=== PATIENT | female | born 1980 | race Caucasian/White ===

== ENCOUNTER 2016-09-12 15:30 | Emergency (ER) | payer BC ==
[2016-09-12] MEDS ORDERED: LORazepam 2 MG/ML MDV IVPUSH ONE (15:37)
[2016-09-12] MEDS ORDERED: Ketorolac 30 MG/ML SDV IVPUSH ONE (15:37)
[2016-09-12] MEDS ORDERED: Sodium Chloride 0.9% 1,000 ML IV ONE (15:37)
[2016-09-12] MEDS ORDERED: Ondansetron 4 MG/2 ML SDV IVPUSH ONE (15:37)
--- NOTE | 2016-09-12 15:43 | EDM.PDOC ---
ED HPI GENERAL MEDICAL PROBLEM - General Chief Complaint: Neuro Symptoms/Deficits Stated Complaint: DIZZY Time Seen by Provider: 09/12/16 15:41 Source of Information: Reports: Patient History Limitations: Reports: No Limitations - History of Present Illness INITIAL COMMENTS - FREE TEXT/NARRATIVE: History of present illness: [6-year-old female presenting with complaints of headache pain and dizziness. Patient indicates she had this headache starting on Friday where she saw her PCP who instructed her to come here for further evaluation do to some visual changes as well as debilitating levels of pain patient went home thinking that it would resolve itself. Patient indicates it was slightly better but today she woke up and while the visual changes are not as bad the pain is significantly worse. Patient is presenting with A. mild amount of distress and clear discomfort.] Review of systems: As per history of present illness and below otherwise all systems reviewed and negative. Past medical history: As per history of present illness and as reviewed below otherwise noncontributory. Surgical history: As per history of present illness and as reviewed below otherwise noncontributory. Social history: No reported history of drug or alcohol abuse. Family history: As per history of present illness and as reviewed below otherwise noncontributory. Physical exam: HEENT: Atraumatic, normocephalic, pupils reactive, negative for conjunctival pallor or scleral icterus, mucous membranes moist, throat clear, neck supple, nontender, trachea midline. Point tenderness noted in the frontal sinuses, maxillary sinuses as well as temporal sinuses Lungs: Clear to auscultation, breath sounds equal bilaterally, chest nontender. Heart: S1S2, regular, negative for clicks, rubs, or JVD. Abdomen: Soft, nondistended, nontender. Negative for masses or hepatosplenomegaly. Negative for costovertebral tenderness. Pelvis: Stable nontender. Genitourinary: Deferred. Rectal: Deferred. Extremities: Atraumatic, negative for cords or calf pain. Neurovascular unremarkable. Neuro: Awake, alert, oriented. Cranial nerves II through XII unremarkable. Cerebellum unremarkable. Motor and sensory unremarkable throughout. Exam nonfocal. Diagnostics: [CBC CMP, CT of head] Therapeutics: [IV fluid, Ativan, Toradol] Impression: [Sinusitis the headache] Plan: [antibiotics] Definitive disposition and diagnosis as appropriate pending reevaluation and review of above. head Pain Score (Numeric/FACES): 8 - Related Data Allergies Allergy/AdvReac Type Severity Reaction Status Date / Time ibuprofen Allergy Nausea and Verified 09/12/16 15:38 Vomiting Home Meds: Home Meds lamoTRIgine [Lamotrigine] 200 mg PO DAILY 11/29/13 [History] ARIPiprazole [Abilify] 10 mg PO DAILY 09/12/16 [History] Desvenlafaxine [Desvenlafaxine ER] 50 mg PO DAILY 09/12/16 [History] Gabapentin [Neurontin] 300 mg PO BID 09/12/16 [History] Temazepam 15 - 30 mg PO BEDTIME PRN 09/12/16 [History] Past Medical History - Past Health History Medical/Surgical History: Denies Medical/Surgical History Other OB/BYN History: Hysterectomy (2011) Psychiatric History: Reports: Bipolar - Past Surgical History GI Surgical History: Reports: Cholecystectomy Female Surgical History: Reports: Hysterectomy Social & Family History - Tobacco Use Smoking Status *Q: Former Smoker Years of Tobacco use: 7 Used Tobacco, but Quit: Yes Month Tobacco Last Used: 9 months - Caffeine Use Caffeine Use: Reports: Coffee - Alcohol Use Days Per Week of Alcohol Use: 2 - Recreational Drug Use Recreational Drug Use: No Drug Use in Last 12 Months: No ED ROS GENERAL - Review of Systems Review Of Systems: See Below (See history of present illness) ED EXAM, GENERAL - Physical Exam Exam: See Below ([facility]) Course - Vital Signs Last Recorded V/S: Last Vital Signs Temp 36.2 C 09/12/16 15:35 Pulse 93 09/12/16 15:35 Resp 18 09/12/16 15:35 BP 161/105 H 09/12/16 15:35 Pulse Ox 94 L 09/12/16 15:35 - Orders/Labs/Meds Orders: Active Orders 24 hr Category Date Time Status EKG 12 Lead [EKG Documentation Completion] [RC] STAT Care 09/12/16 16:09 Active Labs: Laboratory Tests 09/12/16 09/12/16 Range/Units 15:58 15:58 WBC 13.49 H (4.0-11.0) K/uL RBC 4.68 (4.30-5.90) M/uL Hgb 13.9 (12.0-16.0) g/dL Hct 41.7 (36.0-46.0) % MCV 89.1 (80.0-98.0) fL MCH 29.7 (27.0-32.0) pg MCHC 33.3 (31.0-37.0) g/dL RDW Std Deviation 46.2 (28.0-62.0) fl RDW Coeff of Karla 14 (11.0-15.0) % Plt Count 360 (150-400) K/uL MPV 9.60 (7.40-12.00) fL Neut % (Auto) 69.2 (48.0-80.0) % Lymph % (Auto) 22.3 (16.0-40.0) % [place] % (Auto) 5.8 (0.0-15.0) % Eos % (Auto) 2.2 (0.0-7.0) % Baso % (Auto) 0.5 (0.0-1.5) % Neut # (Auto) 9.3 H (1.4-5.7) K/uL Lymph # (Auto) 3.0 H (0.6-2.4) K/uL [place] # (Auto) 0.8 (0.0-0.8) K/uL Eos # (Auto) 0.3 (0.0-0.7) K/uL Baso # (Auto) 0.1 (0.0-0.1) K/uL Nucleated RBC % 0.0 /100WBC Nucleated RBCs # 0 K/uL Sodium 142 (136-146) mmol/L Potassium 4.2 (3.5-5.1) mmol/L Chloride 110 (98-110) mmol/L Carbon Dioxide 20 L (21-31) mmol/L BUN 11 (6.0-23.0) mg/dL Creatinine 0.8 (0.6-1.5) mg/dL Est Cr Clr Drug Dosing 92.76 mL/min Estimated GFR (MDRD) > 60.0 ml/min Glucose 108 (60-110) mg/dL Calcium 9.1 (8.8-10.8) mg/dL Total Bilirubin 0.2 (0.1-1.5) mg/dL AST 15 (5-40) IU/L ALT 26 (8-54) IU/L Alkaline Phosphatase 113 (40-150) Total Protein 7.2 (6.0-8.0) g/dL Albumin 4.1 (3.5-5.0) g/dL Globulin 3.1 (2.0-3.5) g/dL Albumin/Globulin Ratio 1.3 (1.3-2.8) Meds: Medications Discontinued Medications Generic Name Dose Route Start Last Admin Trade Name Nilsa PRN Reason Stop Dose Admin Sodium Chloride 1,000 mls @ 999 mls/hr 09/12/16 15:37 09/12/16 15:59 Normal Saline IV 09/12/16 16:37 999 mls/hr STAT ONE Administration Ketorolac Tromethamine 30 mg 09/12/16 15:37 09/12/16 15:59 Toradol IVPUSH 09/12/16 15:38 30 mg ONETIME ONE Administration Lorazepam 1 mg 09/12/16 15:37 09/12/16 16:00 Ativan IVPUSH 09/12/16 15:38 1 mg ONETIME ONE Administration Ondansetron HCl 8 mg 09/12/16 15:37 09/12/16 15:59 Zofran IVPUSH 09/12/16 15:38 8 mg ONETIME ONE Administration Departure - Departure Time of Disposition: 17:03 Disposition: Home, Self-Care 01 Condition: good Clinical Impression: Sinusitis, Headache - Discharge Information Forms: ED Department Discharge Additional Instructions: The following information is given to patients seen in the emergency department who are being discharged to home. This information is to outline your options for follow-up care. We provide all patients seen in our emergency department with a follow-up referral. The need for follow-up, as well as the timing and circumstances, are variable depending upon the specifics of your emergency department visit. If you don't have a primary care physician on staff, we will provide you with a referral. We always advise you to contact your personal physician following an emergency department visit to inform them of the circumstance of the visit and for follow-up with them and/or the need for any referrals to a consulting specialist. The emergency department will also refer you to a specialist when appropriate. This referral assures that you have the opportunity for follow-up care with a specialist. All of these measure are taken in an effort to provide you with optimal care, which includes your follow-up. Under all circumstances we always encourage you to contact your private physician who remains a resource for coordinating your care. When calling for follow-up care, please make the office aware that this follow-up is from your recent emergency room visit. If for any reason you are refused follow-up, please contact the [facility] Emergency Department at and asked to speak to the emergency department charge nurse. Take antibiotics as directed Take 800 mg of ibuprofen [id number] every 8 hours for the next 3 days You would benefit from some Mucinex as well as some Claritin-D Followup with your PCP 1-2 days Return to ED as needed as discussed - My Orders Last 24 Hours: My Active Orders 09/12/16 16:09 EKG 12 Lead [EKG Documentation Completion] [RC] STAT - Assessment/Plan Last 24 Hours: My Active Orders 09/12/16 16:09 EKG 12 Lead [EKG Documentation Completion] [RC] STAT
[2016-09-12 16:24] LABS: CHLORIDE,CL 110 mmol/L (98-110); SODIUM,NA 142 mmol/L (136-146)
--- NOTE | 2016-09-12 16:27 | CT ---
EXAMINATION: Non contrast CT head. Coronal and sagittal reformats. HISTORY: Pain FINDINGS: No evidence of intra or extra axial hemorrhage, mass, midline shift, hydrocephalus or edema. No hy poattenuation changes in the major vascular territories to suggest acute infarct. No abnormal intracranial calcifications are detected. No evidence of substantial vascular calcifica tions. There is a small mucous retention cyst within the right maxillary sinus. Orbits and globes a re symmetric. Mastoid air cells are clear. Pituitary fossa appears unremarkable. The calvarium is intact. No evidence of skull fracture. IMPRESSION: No acute intracranial findings.
[2016-09-12 17:43] VITALS: BP 147/84
== END 2016-09-12 17:42 | disposition home or self-care (01) ==
LOC: MW.ED 15:30
DX: J32.9 Chronic sinusitis, unspecified (principal); Z79.899 Other long term (current) drug therapy; Z90.710 Acquired absence of both cervix and uterus; Z90.49 Acquired absence of other specified parts of digestive tract; Z87.891 Personal history of nicotine dependence; Z88.6 Allergy status to analgesic agent
CPT/HCPCS: 36415; 70450; 80053; 85025; 93005; 96361; 96374; 96375; 99284; J1885; J2060; J2405; J7040

== ENCOUNTER 2017-03-19 07:26 | Day surgery (SDC) | payer BC ==
[~2017-03-19 07:26] MED LIST: Bupivacaine 0.25% 10 ML SDV INJECT ONE; Bupivacaine 0.25% 10 ML SDV ONE; Dexamethasone 4 MG/ML 5 ML MDV ONE; Lactated Ringers 1,000 ML IV SCH; Midazolam 1 MG/ML 2 ML SDV ONE; Ondansetron 4 MG/2 ML SDV ONE; Propofol 200 MG/20 ML SDV ONE; ceFAZolin 2 GM in Premix Bag 1 BAG IV ONE; fentaNYL 100 MCG/2 ML SDV ONE
--- NOTE | 2017-03-19 08:08 | PCM.PREANE ---
Preanesthetic Assessment - Anesthesia/Transfusion/Family Hx Anesthesia History: Prior Anesthesia Without Reaction Other Type of Anesthesia Reaction Comment: DENIES ANY PROBLEMS WITH ANESTHESIA Family History of Anesthesia Reaction: No Transfusion History: No Prior Transfusion(s) Intubation History: Unknown - Review of Systems General: No Symptoms Pulmonary: No Symptoms Cardiovascular: No Symptoms Gastrointestinal: No Symptoms Neurological: No Symptoms Other: Reports: None - Physical Assessment Height: 1.68 m Weight: 143.789 kg ASA Class: 3 Mental Status: Alert & Oriented x3 Airway Class: Mallampati = 3 Dentition: Reports: Normal Dentition Thyro-Mental Finger Breadths: 2 Mouth Opening Finger Breadths: 2 ROM/Head Extension: Full Lungs: Normal Respiratory Effort, Wheezing Cardiovascular: Regular Rate, Regular Rhythm - Allergies Allergies/Adverse Reactions: Allergies Allergy/AdvReac Type Severity Reaction Status Date / Time ibuprofen Allergy Nausea and Verified 09/12/16 15:38 Vomiting - Blood Blood Available: No - Anesthesia Plan Pre-Op Medication Ordered: None - Acknowledgements Anesthesia Type Planned: General Anesthesia Pt an Appropriate Candidate for the Planned Anesthesia: Yes Alternatives and Risks of Anesthesia Discussed w Pt/Guardian: Yes Pt/Guardian Understands and Agrees with Anesthesia Plan: Yes PreAnesthesia Questionnaire - Past Health History Medical/Surgical History: Denies Medical/Surgical History HEENT History: Reports: Other (See Below) Other HEENT History: wears glasses/contacts Respiratory History: Reports: Asthma Gastrointestinal History: Reports: GERD (controlled with omeprazole) Genitourinary History: Reports: None Other OB/BYN History: Hysterectomy (2011) Musculoskeletal History: Reports: Back Pain, Chronic Neurological History: Reports: Concussion, Migraines Psychiatric History: Reports: Anxiety, Bipolar, Depression, Suicide Attempt Endocrine/Metabolic History: Reports: Obesity/BMI 30+ (morbid obesity BMI 51.2) - Past Surgical History Head Surgeries/Procedures: Reports: None GI Surgical History: Reports: Cholecystectomy Female Surgical History: Reports: Hysterectomy, Tubal Ligation - SUBSTANCE USE Smoking Status *Q: Former Smoker (quit a year ago) Tobacco Use Within Last Twelve Months: Cigarettes Days Per Week of Alcohol Use: 2 Recreational Drug Use History: No - HOME MEDS Home Medications: Home Meds lamoTRIgine [Lamotrigine] 200 mg PO DAILY 11/29/13 [History] ARIPiprazole [Abilify] 10 mg PO DAILY 09/12/16 [History] Desvenlafaxine [Desvenlafaxine ER] 100 mg PO DAILY 09/12/16 [History] Gabapentin [Neurontin] 600 mg PO BID 09/12/16 [History] Temazepam 15 - 30 mg PO BEDTIME PRN 09/12/16 [History] ALPRAZolam [Alprazolam] 0.5 mg PO ASDIRECTED PRN 03/14/17 [History] Albuterol Sulfate [Proair Hfa] 1 - 2 puff INH ASDIRECTED PRN 03/14/17 [History] Cholecalciferol (Vitamin D3) [Vitamin D3] 2,000 units PO BID 03/14/17 [History] Multivitamin [Multivitamins] 1 tab PO DAILY 03/14/17 [History] Omeprazole 40 mg PO DAILY 03/14/17 [History] Rizatriptan Benzoate [Rizatriptan] 10 mg SL ASDIRECTED PRN 03/14/17 [History] - CURRENT (IN HOUSE) MEDS Current Meds: Current Medications Lactated Ringer's (Ringers, Lactated) 1,000 mls @ 125 mls/hr IV ASDIRECTED MARYA Last Admin: 03/19/17 07:57 Dose: 125 mls/hr Discontinued Medications Bupivacaine HCl (Sensorcaine-Mpf 0.25%) 10 ml INJECT ONETIME ONE Stop: 03/18/17 16:57 Bupivacaine HCl (Sensorcaine-Mpf 0.25%) Confirm Administered Dose 10 ml .ROUTE .STK-MED ONE Stop: 03/19/17 07:27 Dexamethasone (Dexamethasone) Confirm Administered Dose 20 mg .ROUTE .STK-MED ONE Stop: 03/19/17 07:23 Fentanyl (Sublimaze) Confirm Administered Dose 100 mcg .ROUTE .STK-MED ONE Stop: 03/19/17 07:21 Cefazolin Sodium/Dextrose 2 gm (/ Premix) 50 mls @ 100 mls/hr IV ONETIME ONE Stop: 03/18/17 17:25 Lidocaine HCl (Xylocaine-Mpf 1%) Confirm Administered Dose 5 ml .ROUTE .STK-MED ONE Stop: 03/19/17 07:23 Midazolam HCl (Versed 1 Mg/Ml) Confirm Administered Dose 2 mg .ROUTE .STK-MED ONE Stop: 03/19/17 07:22 Ondansetron HCl (Zofran) Confirm Administered Dose 4 mg .ROUTE .STK-MED ONE Stop: 03/19/17 07:23 Propofol (Diprivan 20 Ml) Confirm Administered Dose 200 mg .ROUTE .STK-MED ONE Stop: 03/19/17 07:21
[2017-03-19] MEDS ORDERED: fentaNYL 100 MCG/2 ML SDV IVPUSH PRN (08:24)
[2017-03-19] MEDS ORDERED: Phenylephrine/Normal Saline 100 MCG/ML 10 ML Syringe ONE ×2 (08:52→09:11)
[2017-03-19] MEDS ORDERED: Albuterol/Ipratropium 3.0-0.5 MG/3 ML Neb Soln NEB ONE (09:47)
[2017-03-19 10:07] VITALS: BP 80/47
--- NOTE | 2017-03-19 17:44 | PCM.OPNOTE ---
- General Post-Op/Procedure Note Date of Surgery/Procedure: 03/19/17 Operative Procedure(s): right carpal tunnel release and extensor tenosynovectomy Pre Op Diagnosis: right carpal tunnel syndrome and wrist swelling Post-Op Diagnosis: Same Anesthesia Technique: Local, MAC Primary Surgeon: Joann Miranda Mathematical Engineer: Barbra Callahan Complications: None Condition: Good Free Text/Narrative:: Intake & Output 03/19/17 03/19/17 03/19/17 07:59 15:59 23:59 Intake Total 950 Balance 950
--- NOTE | 2017-03-20 13:27 | OR ---
SURGEON: ADRIAN PEMBERTON MD DATE OF PROCEDURE: 03/19/2017 PREOPERATIVE DIAGNOSIS: Right carpal tunnel syndrome and dorsal wrist swelling. POSTOPERATIVE DIAGNOSIS: Right carpal tunnel syndrome and dorsal wrist swelling. PROCEDURE: Right carpal tunnel release and extensor tendon tenosynovectomy. ANESTHESIA: General LMA. ENVIRONMENTAL DEPARTMENT MANAGER: JULIA Melendez INDICATIONS: Ms. Orozco is a 37-year-old female with right carpal tunnel syndrome. She also has a swelling of the dorsal aspect of the wrist that could be a ganglion versus tenosynovitis. Risks and benefits of exploration and debridement were discussed with her versus excision if there is a ganglion. She would like to proceed. Risks were including, but not limited to, bleeding, infection, damage to underlying or overlying structures, possible need for future interventions, possible scarring. PROCEDURE IN DETAIL: After informed consent was obtained and placed on the chart, the patient was brought to the operating theater and laid in supine position. After adequate general LMA anesthesia was obtained, the area was prepped and draped and a time- out was completed to confirm side and site. Attention was then paid to the carpal tunnel release. After exsanguination of the arm and insufflation of the tourniquet to 200 mmHg, a 15 blade was used to dissect through the skin and subcutaneous tissues until release of the transverse carpal ligament. This was done under direct visualization and carried distally and proximally under that same direct visualization until complete release. Once adequately released, it was irrigated and closed using a 5-0 nylon stitch in a horizontal mattress fashion. The dorsum of the hand was then evaluated and a small longitudinal incision was made over the dorsal swelling. Dissection was carried circumferentially around this and it was appreciated to be coming from the extensor tendons not from the joint surface itself. It is likely just tenosynovitis. The extensor retinaculum was released enough to debride the significant inflammation on the tendons. Once this was gone, the dorsal lump was appreciated to be smooth. Again, the wrist capsule was evaluated and no ganglions were appreciated in this area. Once adequately debrided, the wound was copiously irrigated and the skin was closed in a running horizontal mattress fashion using 5-0 nylon stitch after irrigation. Once adequately closed, the wounds were dressed with Xeroform, fluffs, and a Kerlix gauze dressing and a 2-inch Alvino wrap and a bulky hand dressing. The patient tolerated this well. All counts and needles were correct at the end of the case. FOLLOWUP INSTRUCTIONS: The patient will see us in 10 to 14 days or sooner if any problems, questions, or concerns. PRIMARY SURGEON: SECONDARY SURGEON: REASON ENVIRONMENTAL DEPARTMENT MANAGER WAS NECESSARY: ROLE OF ENVIRONMENTAL DEPARTMENT MANAGER: VASU VICENTE /[id number]
== END 2017-03-19 10:30 | disposition home or self-care (01) ==
LOC: MW.SDS 07:26
PROVIDERS: ATTEND Plastic Surgery
DX: G56.01 Carpal tunnel syndrome, right upper limb (principal); M65.9 Synovitis and tenosynovitis, unspecified; J45.909 Unspecified asthma, uncomplicated; K21.9 Gastro-esophageal reflux disease without esophagitis; G89.29 Other chronic pain; M54.9 Dorsalgia, unspecified; G43.909 Migraine, unspecified, not intractable, without status migrainosus; F41.9 Anxiety disorder, unspecified; F31.9 Bipolar disorder, unspecified; E66.01 Morbid (severe) obesity due to excess calories; Z68.43 Body mass index [BMI] 50.0-59.9, adult; Z91.5 Personal history of self-harm; Z87.891 Personal history of nicotine dependence; Z79.899 Other long term (current) drug therapy; Z90.710 Acquired absence of both cervix and uterus; Z88.6 Allergy status to analgesic agent; Z98.51 Tubal ligation status
CPT/HCPCS: 25000; 64721; J0690; J1100; J2250; J2405; J3010; J7120; 00752; 01810; J2704

== ENCOUNTER 2021-03-14 18:50 | Emergency (ER) | payer BC ==
[2021-03-14 19:10] VITALS: BP 101/71
[2021-03-14] MEDS ORDERED: Albuterol/Ipratropium 3.0-0.5 MG/3 ML Neb Soln NEB ONE (19:28)
[2021-03-14] MEDS ORDERED: Benzonatate 100 MG Cap PO ONE (19:28)
--- NOTE | 2021-03-14 19:31 | EDM.PDOC ---
ED HPI GENERAL MEDICAL PROBLEM - General Chief Complaint: ENT Problem Stated Complaint: COUGH, SINUS Time Seen by Provider: 03/14/21 19:07 - History of Present Illness INITIAL COMMENTS - FREE TEXT/NARRATIVE: History of present illness: [] Patient started having sinus congestion and feeling sick 11 March 2021. Her cough is gotten worse. She has headache body aches. There is no change in taste or smell. Patient was put on amoxicillin and not sure whether it is with or without clavulanic acid for sinusitis already and is not doing better. The patient has a history of asthma and used her nebulizer an hour and a half before arrival with no response. The patient is not -she has had a hysterectomy. The patient has had 2 doses of during a Covid vaccine. She has no children in the house. Review of systems: As per history of present illness and below otherwise all systems reviewed and negative. Past medical history: As per history of present illness and as reviewed below otherwise noncontributory. Surgical history: As per history of present illness and as reviewed below otherwise noncontributory. Social history: No reported history of drug or alcohol abuse. Family history: As per history of present illness and as reviewed below otherwise noncontributory. Physical exam: Constitutional - well developed, well-nourished and in no acute distress HEENT - normocephalic, no evidence of trauma - external nose and mouth normal - no mass in neck and no JVD - mucosae moist EYES - full EOM, PERRL, no icterus - no evidence of inflammation, injection, or drainage Respiratory -slightly prolonged expiratory phase of respiration-no respiratory distress, equal bilateral expansion, lungs clear to auscultation but significantly diminished throughout. Cardiovascular - Regular Rhythm with S1 and S2 appreciated and no murmur, gallop or rub. GI - abdomen soft without distension or organomegaly - normal bowel sounds - no guard or rebound Musculoskeletal no gross deformity of long bones or joints - no tenderness, swelling or edema Neurologic - Alert and oriented times four - CN II-XII grossly intact - motor sensory and coordination symmetrically normal Psychiatric - appropriate mood and affect with normal thought content Hematologic - No petechiae or purpura - mucosa appropriate color and sclera not pale - normal nail bed color and refill Integument - no rash or evidence of trauma - normal turgor Diagnostics: [] Therapeutics: [] Impression: [] Plan: [] Definitive disposition and diagnosis as appropriate pending reevaluation and review of above. generalized Pain Score (Numeric/FACES): 4 - Related Data Allergies Allergy/AdvReac Type Severity Reaction Status Date / Time ibuprofen Allergy Nausea and Verified 03/14/21 19:10 Vomiting Home Meds: Home Meds lamoTRIgine [Lamotrigine] 200 mg PO DAILY 11/29/13 [History] ARIPiprazole [Abilify] 10 mg PO DAILY 09/12/16 [History] Desvenlafaxine [Desvenlafaxine ER] 100 mg PO DAILY 09/12/16 [History] Temazepam 15 - 30 mg PO BEDTIME PRN 09/12/16 [History] Albuterol Sulfate [Proair Hfa] 1 - 2 puff INH ASDIRECTED PRN 03/14/17 [History] Multivitamin [Multivitamins] 1 tab PO DAILY 03/14/17 [History] Acetaminophen/HYDROcodone [Boomer 325-5 MG] 1 tab PO Q6H PRN #30 tablet 03/19/17 [Rx] Amoxicillin 875 mg PO BID 03/14/21 [History] Benzonatate 200 mg PO TID PRN #10 capsule 03/14/21 [Rx] buPROPion HCL [Bupropion HCl Sr] 150 mg PO BID 03/14/21 [History] busPIRone [Buspar] 5 mg PO BID 03/14/21 [History] predniSONE [Prednisone] 60 mg PO DAILY #21 tablet 03/14/21 [Rx] Past Medical History - Past Health History Medical/Surgical History: Denies Medical/Surgical History HEENT History: Reports: Other (See Below) Other HEENT History: wears glasses/contacts Respiratory History: Reports: Asthma Gastrointestinal History: Reports: GERD Genitourinary History: Reports: None Other SHACTOR HELPER History: Hysterectomy (2011) Musculoskeletal History: Reports: Back Pain, Chronic, Other (See Below) Other Musculoskeletal History: R RTC tear Neurological History: Reports: Concussion, Migraines Psychiatric History: Reports: Anxiety, Bipolar, Depression, Suicide Attempt Endocrine/Metabolic History: Reports: Obesity/BMI 30+ - Infectious Disease History Infectious Disease History: Reports: None - Past Surgical History Head Surgeries/Procedures: Reports: None GI Surgical History: Reports: Cholecystectomy Female Surgical History: Reports: Hysterectomy, Tubal Ligation Social & Family History - Family History Family Medical History: No Pertinent Family History - Tobacco Use Tobacco Use Status *Q: Former Tobacco User Used Tobacco, but Quit: Yes Month/Year Tobacco Last Used: may 2020 - Caffeine Use Caffeine Use: Reports: Coffee - Recreational Drug Use Recreational Drug Use: Yes Recreational Drug Type: Reports: Marijuana/Hashish ED ROS GENERAL - Review of Systems Review Of Systems: Comprehensive ROS is negative, except as noted in HPI. ED EXAM, GENERAL - Physical Exam Exam: See Below Free Text/Narrative:: My physical exam is in the HPI Course - Vital Signs Last Recorded V/S: Last Vital Signs Temp 36.6 C 03/14/21 19:07 Pulse 114 H 03/14/21 19:07 Resp 18 03/14/21 19:07 BP 101/71 03/14/21 19:07 Pulse Ox 96 03/14/21 19:07 - Orders/Labs/Meds Orders: Active Orders 24 hr Category Date Time Status RT Aerosol Therapy [RC] ASDIRECTED Care 03/14/21 19:28 Active Labs: Laboratory Tests 03/14/21 Range/Units 19:52 Influenza Type A RNA NEGATIVE (NEGATIVE) Influenza Type B RNA NEGATIVE (NEGATIVE) SARS-CoV-2 RNA ([facility]) NEGATIVE (NEGATIVE) Meds: Medications Discontinued Medications Generic Name Dose Route Start Last Admin Trade Name Freq PRN Reason Stop Dose Admin Albuterol/Ipratropium 3 ml 03/14/21 19:28 03/14/21 19:53 Albuterol/Ipratropium 3.0-0.5 Mg/3 Ml Neb Soln NEB 03/14/21 19:29 3 ml ONETIME ONE Administration Benzonatate 200 mg 03/14/21 19:28 03/14/21 19:53 Benzonatate 100 Mg Cap PO 03/14/21 19:29 200 mg ONETIME ONE Administration - Re-Assessments/Exams Free Text/Narrative Re-Assessment/Exam: 03/14/21 20:20 Patient subjectively improved with nebulizer given here. 03/14/21 21:00 Patient remains stable and improved. Plan to send prescriptions to [place] pharmacy which will be open for another hour. Patient discharged in satisfactory condition Departure - Departure Time of Disposition: 20:58 Disposition: Home, Self-Care 01 Condition: Good Clinical Impression: Acute bronchitis, Bronchospasm - Discharge Information Prescriptions: predniSONE [Prednisone] 60 mg PO DAILY #21 tablet Instructions: Bronchospasm, Adult, Acute Bronchitis, Adult, [id number] Referrals: Brenda Hawley [employer] E[employer]INE[employer] [Primary Care Provider] - Forms: ED Department Discharge Additional Instructions: Continue fluids. Continue antibiotics. 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 This information is to outline your options fo r follow-up care. We provide all patients seen in our emergency department with a follow-up referral. The need for follow-up, as well as the timing and circumstances, are variable depending upon the specifics of your emergency department visit. If you don't have a primary care physician on staff, we will provide you with a referral. We always advise you to contact your personal physician following an emergency department visit to inform them of the circumstance of the visit and for follow-up with them and/or the need for any referrals to a consulting specialist. The emergency department will also refer you to a specialist when appropriate. This referral assures that you have the opportunity for follow-up care with a specialist. All of these measure are taken in an effort to provide you with optimal care, which includes your follow-up. Under all circumstances we always encourage you to contact your private physician who remains a resource for coordinating your care. When calling for follow-up care, please make the office aware that this follow-up is from your recent emergency room visit. If for any reason you are refused follow-up, please contact the [facility] Emergency Department at and asked to speak to the emergency department charge nurse. Sepsis Event Note (ED) - Evaluation Sepsis Screening Result: No Definite Risk - Focused Exam Vital Signs: Vital Signs Temp Pulse Resp BP Pulse Ox 03/14/21 19:07 36.6 C 114 H 18 101/71 96 - My Orders Last 24 Hours: My Active Orders 03/14/21 19:28 RT Aerosol Therapy [RC] ASDIRECTED - Assessment/Plan Last 24 Hours: My Active Orders 03/14/21 19:28 RT Aerosol Therapy [RC] ASDIRECTED
--- NOTE | 2021-03-14 20:00 | CR ---
INDICATION: Cough. TECHNIQUE: Upright portable AP image of the chest. COMPARISON: None. FINDINGS: Lungs and pleural spaces clear. Heart size normal. Ascending aorta and aortic arch prominent for the patient`s age. No significant osseous abnormality. IMPRESSION: 1. Clear lungs. 2. Ascending aorta and aortic arch prominent for the patient`s age. Dictated by Michael Rogers MD @ 03/14/2021 7:59:24 PM (Electronically Signed)
[2021-03-14 20:50] LABS: CORONAVIRUS COVID-19 NAA NEGATIVE (NEGATIVE); INFLUENZA A NAA NEGATIVE (NEGATIVE); INFLUENZA B NAA NEGATIVE (NEGATIVE)
[2021-03-14 21:06] VITALS: PULSE 92
== END 2021-03-14 21:10 | disposition home or self-care (01) ==
LOC: MW.ED 18:50
DX: J20.9 Acute bronchitis, unspecified (principal); E66.9 Obesity, unspecified; Z68.31 Body mass index [BMI] 31.0-31.9, adult; Z87.891 Personal history of nicotine dependence; Z88.6 Allergy status to analgesic agent; Z79.899 Other long term (current) drug therapy; Z20.822 Contact with and (suspected) exposure to COVID-19
CPT/HCPCS: 0240U; 71045; 99284; A9270; J7620-GY